=== PATIENT | female | born 1990 | race Caucasian/White ===

== ENCOUNTER → 2019-01-31 | Outpatient (CLI) | payer OTHER, SELFPAY ==
[2019-01-31 14:49] VITALS: BMI 28.9
[2019-02-04 12:50] LABS: HPV Reflexed? NOT INDICATED
== END | disposition home or self-care (01) ==
LOC: LABSPEC 17:09
PROVIDERS: Referring Provider Obstetrics & Gynecology; Visit Provider Obstetrics & Gynecology
DX: Z12.4 Encounter for screening for malignant neoplasm of cervix (principal)
CPT/HCPCS: 87624; 88175; G0145

== ENCOUNTER → 2019-10-21 07:12 | Outpatient (CLI) | payer OTHER, SELFPAY ==
[2019-10-16 15:43] VITALS: BMI 28.9
--- NOTE | 2019-10-21 07:13 | MRI_ITS ---
STUDY: MRI LEFT SHOULDER REASON FOR EXAM: Female, 29 years old. Constant LEFT shoulder pain s/p injury, decreased ROM TECHNIQUE: Standardized fat and water weighted pulse sequences were obtained in all 3 orthogonal planes. COMPARISON: None. FINDINGS: Normal supraspinatus tendon. Normal infraspinatus tendon. Normal subscapularis tendon. Normal teres minor tendon. Normal supraspinatus muscle. Normal infraspinatus muscle. Normal subscapularis muscle. Normal teres minor muscle. Normal glenohumeral articulation. Normal humeral head and visualized proximal humerus. Normal biceps labral complex. Normal intracapsular long biceps tendon. Normal labrum. Normal capsulo- ligamentous complex. Normal rotator interval. Normal acromioclavicular articulation. There is a Type II morphology (curved), with a neutral orientation. There is no subacromial-subdeltoid bursal fluid. Normal visualized coracohumeral and coracoacromial ligaments. Normal quadrilateral space. Normal axillary space. Normal deltoid muscle. Normal trapezius muscle. MRI/Upper Ext Joint Only(Routine) IMPRESSION: Normal MRI of the shoulder. Electronically Signed: Fredi Saenz MD at 16:25 EST , Service support ,
== END ==
PROVIDERS: Referring Provider Physician Assistant Surgical; Visit Provider Physician Assistant Surgical
DX: S46.912A Strain of unspecified muscle, fascia and tendon at shoulder and upper arm level, left arm, initial encounter (principal); X58.XXXA Exposure to other specified factors, initial encounter
CPT/HCPCS: 73221

== ENCOUNTER → 2019-10-25 12:16 | Outpatient (CLI) | payer OTHER, SELFPAY ==
[2019-10-12 09:10] VITALS: BMI 28.9
[2019-10-16 15:43] VITALS: BMI 28.9
--- NOTE | 2019-10-25 12:16 | US_ITS ---
STUDY: ULTRASOUND OF THE FEMALE PELVIS - COMPLETE REASON FOR EXAM: Female, 29 years old. ABNL BLEEDING LMP: 10/24/2019 TECHNIQUE: Transabdominal and Transvaginal TECHNICAL QUALITY: Adequate. COMPARISON: None. FINDINGS: The uterus is anteverted and is in a midline position. The uterus measures 9.8 x 5.2 x 4.8 cm. Normal uterine cervix. The endometrium measures 11 mm in thickness, and is hyperechoic. 1 cm hypoechoic mass within the endometrium. There is no demonstrated myometrial mass. I.U.D. - The patient does have an I.U.D. The right ovary is visualized. The right ovary measures 2.0 x 1.8 x 1.9 cm. There is no right ovarian cyst or ovarian mass. There is no visualized right adnexal mass or complex lesion. There is normal arterial and normal venous vascularity. The left ovary is visualized. The left ovary measures 2.7 x 1.4 x 1.9 cm. There is no left ovarian cyst or ovarian mass. There is no visualized left adnexal mass or complex lesion. There is normal arterial and normal venous vascularity. There is no fluid in the cul-de-sac. The pre void volume of the bladder was ml. The post void volume of the bladder was ml. Polycystic ovary disease: No. US/Pelvic (Non ) IMPRESSION: 1 cm hypoechoic endometrial mass. Correlation with hysteroscopy would be useful. Electronically Signed: Boyd Verdin MD at 13:14 EST Tel , Service support ,
--- NOTE | 2019-10-25 12:16 | US_ITS ---
STUDY: ULTRASOUND OF THE FEMALE PELVIS - COMPLETE REASON FOR EXAM: Female, 29 years old. ABNL BLEEDING LMP: 10/24/2019 TECHNIQUE: Transabdominal and Transvaginal TECHNICAL QUALITY: Adequate. COMPARISON: None. FINDINGS: The uterus is anteverted and is in a midline position. The uterus measures 9.8 x 5.2 x 4.8 cm. Normal uterine cervix. The endometrium measures 11 mm in thickness, and is hyperechoic. 1 cm hypoechoic mass within the endometrium. There is no demonstrated myometrial mass. I.U.D. - The patient does have an I.U.D. The right ovary is visualized. The right ovary measures 2.0 x 1.8 x 1.9 cm. There is no right ovarian cyst or ovarian mass. There is no visualized right adnexal mass or complex lesion. There is normal arterial and normal venous vascularity. The left ovary is visualized. The left ovary measures 2.7 x 1.4 x 1.9 cm. There is no left ovarian cyst or ovarian mass. There is no visualized left adnexal mass or complex lesion. There is normal arterial and normal venous vascularity. There is no fluid in the cul-de-sac. The pre void volume of the bladder was ml. The post void volume of the bladder was ml. Polycystic ovary disease: No. US/Transvaginal Non- IMPRESSION: 1 cm hypoechoic endometrial mass. Correlation with hysteroscopy would be useful. Electronically Signed: Boyd Verdin MD at 13:14 EST Tel , Service support ,
== END ==
PROVIDERS: Referring Provider Nurse Practitioner Women's Health; Visit Provider Nurse Practitioner Women's Health
DX: N92.6 Irregular menstruation, unspecified (principal); Z30.431 Encounter for routine checking of intrauterine contraceptive device
CPT/HCPCS: 76830; 76856

== ENCOUNTER 2019-12-20 12:00 | Outpatient (RCR) | payer OTHER, SELFPAY ==
[2019-10-25 16:26] VITALS: BMI 28.9
--- NOTE | 2019-10-26 08:11 | HP.PTEVAL ---
Patient's Visit Information JULIA BROWN is a 29 year old F referred to Physical Therapy by RENNY Boyer with a diagnosis of L shoulder pain. Date of Evaluation: 10/26/19 Physical Therapist: Ramy Tran DPT - Visit Plan Frequency: 3x /Week Duration: 4 Weeks Plan: Start with AAROM progressing to AROM of L shoulder (focus on regaining full pain free AROM). May use US/DN/IFC to reduce symptoms of anterior shoulder 1-2 weeks. Once symptoms have started to reduce and has regained most of full AROM, initiate isometrics of RTC and biceps. Progress strengthening PREs once having minimal symptoms. - Subjective Findings: Pt. is here today for her initial evaluation with diagnosis of L shoulder pain. Pt. works in [employer] at [employer]. 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 She had instant shooting pain down her arm, especially in her anterior shoulder. Pt. denies N/T. She is having some trouble sleeping, has to keep her arm proped up. Pt. has been at work with light retrictions. Pt. was initially restricted on keeping her arm over her head and less than 10#. Was in a sling for a few days, but is now no longer in it. Pt did have an MRI, which was normal. Pt. reprots small improvements since initiail injury. Increased pain with getting dressing, after work. Decreases pain: nothing. Pt. is hopeful to get back to all work and recreational duties witout incerase in symptoms. - Pain L shoulder Pain Intensity (Out of 10): 0 Pain Intensity Range: 6 - Objective POSTURE: Pt. has FH and rounded shoulders. L shoulder. PALPATION: Pt. has tenderness along biceps tendon and anterior shoulder. Slight soreness into pec region. No subacromial pain. No scaplar pain. NEURO: Pt. denies N/T, normal sensation of LUE. Normal DTR of bilateral UEs. ROM: Pt. has full L shoulder ROM, but increased pain starting at ~75% of motions over head into flexion, abd. She also has pain with ER and IR (functional IR worst). pain is always anterior shoulder biceps region. FUll PROM throhgout shoulder. MMT: L elbow- flexion and exte 5/5 mild increase NW with flexion (at anterior shoulder). SHoulder- flexion 4/5 increase NW, abd 4/5 increase NW, ER 4+/5 increase NW, IR 5-/5 NE, extension 5/5 no effect. - Special Tests L Shoulder External Rotation Lag Test - RC Tear: Negative L Shoulder Empty Can - SS: Negative L Shoulder Belly Press - SupScap: Negative L Shoulder Neer - Impingement: Negative L Shoulder Mcgowan Sawyer - Impingement: Negative L Shoulder Biceps Load Test - Labrum: Positive L Shoulder Speeds Test - Labrum/Biceps: Positive - Goals Goal 1:: LTG: Pt. to be I with HEP for ROM and stability of L shoulder. Goal Time Frame: 4-6 Weeks Goal 2:: STG: Pt to tolerate sleeping throughout the night without increase in symptoms. Goal Time Frame: 2-4 Weeks Goal 3:: LTG: Pt. to resume all work activities without increase in symptoms. Goal Time Frame: 4-6 Weeks Goal 4:: STG: Pt. to have full L shoulder AROM without incerase in symptoms. Goal Time Frame: 2-4 Weeks Goal 5:: LTG: Pt. to have full 5/5 strength of L shoulder without increase in symptoms. Goal Time Frame: 4-6 Weeks - Rehabilitation Potential Physical Therapy Diagnosis: Pt. has signs and symptoms consistent with L shoulder strain, L RC strain. Pt. has signs and symptoms suggesting biceps involvement of L shoulder, due to mech of injury, + speeds test and + palpation of bicipital tendong being the greatest pain. 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 Pt. appears to have a strain of her biceps due to this injury. Rehabilitation Potential: Excellent - Anticipated Interventions Patient/Client Instruction: Educate patient on: Condition, Plan of Care, Risk Factors, Benefits of Fitness Program For the Purpose of:: To foster healthy habits, To improve decision making, To facilitate caregiver knowledge, To improve self management, To prevent re-injury, To improve ability to perform tasks related to life management, To improve tolerance to ADL's Therapeutic Exercise to Include: Strength training, Power training, Postural training, Flexibilty training, Passive ROM, Active ROM, Alex Exercises, Scapular Strength/Stabilization For the Purpose of:: To decrease pain, To decrease swelling/inflammation, To increase ROM, To improve nutrient delivery to tissue, To increase oxygenation perfusion, To improve muscle performance and motor function, To improve ability to perform ADL's, To improve ability of physical actions for home/community/work/leisure, To improve health of tissue, To decrease soft tissue restriction, To increase flexibility/ROM Manual Therapy Techniques to Include: Mobilization, Passive ROM, Functional dry needling, Soft tissue mobilization For the Purpose of:: To decrease pain, To increase ROM IF ES: Yes Ultrasound (thermal/non thermal): Yes For the Purpose of:: To decrease pain, To decrease swelling/inflammation, To improve nutrient delivery to tissue Thank you for the opportunity to evaluate your patient. For Medicare and Medicare HMO plans, please review the plan of care and approve it. It will need to be FAXED BACK to us at [phone] for Medicare purposes. For Medicare only, by signing this I certify the plan of care. Please let me know if there are questions or concerns regarding this plan of care. Physician Signature: Date:
--- NOTE | 2020-04-22 16:26 | HP.PTDCNRP_ITS ---
JULIA BROWN was seen in my office for initial evaluation on 10/26/19. The following Plan of Care was established for this patient: Initial Frequency: 3x /Week Initial Duration: 4 Weeks Patient/Client Instruction: Educate patient on: Condition, Plan of Care, Risk Factors, Benefits of Fitness Program For the Purpose of:: To foster healthy habits, To improve decision making, To facilitate caregiver knowledge, To improve self management, To prevent re- injury, To improve ability to perform tasks related to life management, To improve tolerance to ADL's Therapeutic Exercise to Include: Strength training, Power training, Postural training, Flexibilty training, Passive ROM, Active ROM, Alex Exercises, Scapular Strength/Stabilization For the Purpose of:: To decrease pain, To decrease swelling/inflammation, To increase ROM, To improve nutrient delivery to tissue, To increase oxygenation perfusion, To improve muscle performance and motor function, To improve ability to perform ADL's, To improve ability of physical actions for home/community/work/leisure, To improve health of tissue, To decrease soft tissue restriction, To increase flexibility/ROM Manual Therapy Techniques to Include: Mobilization, Passive ROM, Functional dry needling, Soft tissue mobilization For the Purpose of:: To decrease pain, To increase ROM IF ES: Yes Ultrasound (thermal/non thermal): Yes For the Purpose of:: To decrease pain, To decrease swelling/inflammation, To improve nutrient delivery to tissue This patient was last seen in our office 12/20/19. Pertinent comments regarding their Physical therapy will appear below: Pt. was last seen on 12/20/19. Pt. was doing well at her last visit. Pt. has not been seen in PT in several months and will be DC from PT at this point in time. At this point I will be discontinuing this patient from physical therapy. I would be happy to see this patient again in the future if found appropriate by the physician. Thank you! GABRIELLE SimonT
== END 2019-12-20 19:00 | disposition home or self-care (01) ==
LOC: PT 12:00
PROVIDERS: Referring Provider Physician Assistant Surgical; Visit Provider Physician Assistant Surgical
DX: S46.912D Strain of unspecified muscle, fascia and tendon at shoulder and upper arm level, left arm, subsequent encounter (principal); S46.012D Strain of muscle(s) and tendon(s) of the rotator cuff of left shoulder, subsequent encounter
CPT/HCPCS: 97110; 97140; 97161

== ENCOUNTER → 2020-01-09 12:36 | Outpatient (CLI) | payer OTHER, SELFPAY ==
[2019-10-25 16:26] VITALS: BMI 28.9
[2019-12-21 13:00] VITALS: BMI 28.9
== END ==
PROVIDERS: Referring Provider Obstetrics & Gynecology; Visit Provider Obstetrics & Gynecology
DX: Z01.818 Encounter for other preprocedural examination (principal)

== ENCOUNTER 2020-01-16 08:13 | Day surgery (SDC) | payer OTHER, SELFPAY ==
[2019-12-21 13:00] VITALS: BMI 28.9
[2020-01-12 09:48] VITALS: BMI 28.9
[2020-01-16] MEDS: Lactated Ringers 1,000 ML 125 ML IV (07:00)
[2020-01-16 08:37] LABS: Hematocrit 41.5 % (37-47); Mean Corp Hgb Conc 33.7 g/dL (32-36); Mean Corpuscular Hgb 28.9 pg (27.0-32.0); Mean Corpuscular Volume 85.6 fL (81-99); Mean Platelet Vol. 9.8 fl (6.2-12.0); Platelet Count 328 K/mm3 (150-450); RBC Distribution Width SD 40.4 fl (35.1-43.9); Red Blood Count 4.85 M/mm3 (4.2-5.4); White Blood Count 7.9 K/mm3 (4.4-11.0)
[2020-01-16 08:38] VITALS: BP 120/76; PULSE 72; RESP 14; TEMP 36.7; O2SAT 99; BMI 31.9
[2020-01-16 08:49] LABS: Internal QC Validated? YES +Cl - CLEAR BKGD; Pregnancy, Urine Negative Negative
[2020-01-16] MEDS: Enoxaparin 40 MG/0.4 ML Syringe SC (08:58)
--- NOTE | 2020-01-16 09:28 | HP.PCM_ITS ---
- Problem List (1) Abnormal uterine bleeding Status: Acute Comment: hysteroscopy d & c scheduled (2) Encounter for IUD removal and reinsertion Status: Acute Comment: parasophia out, felicitas in (3) Factor 5 Leiden mutation, heterozygous Status: Acute (4) History of DVT (deep vein thrombosis) Status: Acute History and Physical Date of Admission: 01/16/20 Intake Vital Signs 11/20/19 Height 5 ft 5 in 11/20/19 Weight: 188 lb 11/20/19 BMI 31.2 11/20/19 BP 122/80 H Intake Visit Reasons: pre op Chief Complaint: pre op Is patient in pain?: No Allergies codeine Allergy (Mild, Verified 11/20/19 13:03) other hydromorphone [From Dilaudid] Allergy (Mild, Verified 11/20/19 13:03) other morphine Allergy (Mild, Verified 11/20/19 13:03) other Medications copper 380 square mm intrauterine device 1 device INTRAUTERINE ONCE 11/20/19 [History Confirmed 11/20/19] Is last menstrual period known: No Post menopausal: No Patient : No : No [facility] Medical History Factor 5 Leiden mutation, heterozygous (Acute) History of blood clots (Acute) MTHFR gene mutation (Acute) Surgical History H/O knee surgery (Acute) History of placement of chest tube (Acute) History of wisdom tooth extraction, class II edentulism (Acute) Family History Unknown Breast cancer Social History (Updated 11/20/19 @ 13:[address] 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 she has a lesion in the lining of the uterus and has had AUB , has had a paragard IUD in. Pregancy History 0 Elective abortions Hx Para Spontaneous abortions Hx # Term Pregnancies Ectopic pregnancies Hx # Pregnancies Multiple births # of living children ROS Const Constitutional: Reports system reviewed and no additional complaints, except as docu Eyes Eyes: Reports system reviewed and no additional complaints, except as docu ENT ENT: Reports system reviewed and no additional complaints, except as docu Cardio Card: Denies chest pain Resp Resp: Denies cough or dyspnea GI GI: Denies abdominal pain or change in bowel habits : Reports as per HPI; denies nipple discharge Musc Musc: Denies joint pain, back pain or muscle weakness Skin Skin/Breast: Denies hair loss, change in hair, dry skin, breast lump, breast pain, breast skin changes or nipple discharge Neuro Neuro: Reports system reviewed and no additional complaints, except as docu Psych Psych: Reports system reviewed and no additional complaints, except as docu Endo Endo: Denies cold intolerance, excessive sweating, heat intolerance or increased thirst Be/Lymph Hematologic/Lymphatic: Denies easy bleeding, Denies easy bruising, Denies enlarged lymph nodes Exam Const General: cooperative, healthy appearing, comfortable, no acute distress, well developed, well groomed [facility] Head: normal to inspection, normocephalic Ears: hearing grossly normal bilaterally, external ears normal Nose: external nose normal Face and sinus: normal facial exam Neck Neck: normal visual inspection, full ROM, no lymphadenopathy Thyroid: thyroid normal Chest Chest palpation & inspection: normal inspection of the chest Breast inspection: normal inspection of the breasts, normal inspection of the axillae Breast palpation: normal palpation of the breasts, normal palpation of the axillae, no axillary lymphadenopathy Resp Effort & Inspection: normal respiratory effort GI Inspection: normal to inspection, non-distended Palpation: soft, no hepatosplenomegaly, no guarding General: bladder normal to palpation External Female Exam: normal external appearance, normal appearance of the urethra, no lesions Urethra: normal appearance of the urethra Speculum Exam - Vagina: normal appearance of the vagina, normal vaginal discharge Speculum Exam - Cervix: normal appearance of the cervix, no cervical discharge, no lesions, nontender Bimanual Exam- Vagina & Uterus: bladder normal to palpation, No cervical tenderness Bimanual Exam- Adnexa, other: normal adnexae, no adnexal masses, adnexae non- tender Skin General: no rashes or lesions noted Neuro General: alert, moves all extremities, no focal motor deficits Extrem General: normal to inspection, no pedal edema Psych Appearance: grossly normal Mental Status: mental status grossly normal Affect: normal affect Speech and Movement: speech and movement normal Attitude: cooperative Assessment & Plan Problems 1. Abnormal uterine bleeding N93.9 hysteroscopy d & c scheduled 2. Encounter for IUD removal and reinsertion Z30.433 paragard out, liletta in Plan After discussing the patient's diagnosis and treatment plan options, patient wishes to proceed with surgical management. I have discussed with the patient the risks, benefits, and alternatives of the procedure which include but are not limited to risks of anesthesia, bleeding, infection, possible damage to bowel, bladder, or surrounding vasculature which could lead to additional surgery to evaluate any complications. Patient agrees to procedure and wishes to proceed. ACOG/uptodate references given for additional information regarding procedure. plan liletta iud insertion UPDATE- I have seen the patient and performed any clinically relevant updates to the history and physical exam. Lisy Tamez MD Coding Level of Care Code No Charge Diagnoses Abnormal uterine bleeding N93.9 Encounter for IUD removal and reinsertion Z30.433
--- NOTE | 2020-01-16 09:33 | PCM.OPRPT ---
Problem List (1) Abnormal uterine bleeding Status: Acute Comment: hysteroscopy d & c scheduled (2) Encounter for IUD removal and reinsertion Status: Acute Comment: paragard out, felicitas in (3) Factor 5 Leiden mutation, heterozygous Status: Acute (4) History of DVT (deep vein thrombosis) Status: Acute Report of Operation Date of Procedure: 01/16/20 Pre-Operative Diagnosis: aub iud in Post-Operative Diagnosis: same Surgery/Procedure Performed:: d and c hysterosocpy iud removal and mirena insertion Description of Surgical Findings:: polypoid lining, iud strings in endocervical canal Type of Anesthesia:: Local MAC Special Medications: none Specimen's removed: iud, emc Drains: dejesus Estimated Blood Loss (mL): 10 Fluids Replaced: crystalloid Description of Procedure: Patient was prepped and draped in a normal sterile fashion under MAC anesthesia. A weighted speculum was placed in the vagina and the anterior lip of the cervix was grasped with a single-tooth tenaculum. A paracervical block was placed with 1% lidocaine. Cervix was progressively dilated to allow passage of a 5 mm hysteroscope. The lining was fully visualized and noted to have a polypoid lining. IUD was visualized and the strings were noted to be endocervical. These were grasped with polyp forceps and removed easily without complication, uterine sounded to 9 cm. Using the symphion device, the polyps and polypoid area were progressively removed without complications. Direct visual curettage was performed using the device , and all specimens were sent to pathology. Mirena IUD was inserted without difficulty and strings trimmed to 3 to 4 cm from the endocervical loss. All instruments were removed from the vagina and excellent hemostasis was noted. Patient was awoken and taken to recovery in stable condition. Grafts/Implants Used: mirena iud - Complications none - Admit VTE Documentation VTE Present on Admission: No VTE Mechan Device Prophylaxis: SCD's VTE Pharm Prophylaxis ordered?: Yes Multi Select Codes - Urinary/Genital Urinary/Genital CPT Codes: 60241 Insert IUD - and IUD removal, 99332 Hysteroscopy,EMC, Polypectomy
--- NOTE | 2020-01-16 09:34 | DCINST_ITS ---
Discharge Diet: No Restrictions Discharge Activity: Return to Normal Activity, May Shower, May Take a Tub Bath Allergies/Adverse Reactions: Allergies hydromorphone [From Dilaudid] Allergy (Mild, Verified 01/15/20 08:22) Hives morphine Allergy (Mild, Verified 01/15/20 08:22) Hives tramadol Allergy (Verified 01/15/20 08:22) Hives codeine Adverse Reaction (Mild, Verified 01/15/20 08:22) Nausea Medications to take at Discharge Copper [Paragard T 380-A] 1 ea IY DAILY 01/15/20 Multivit-Min/Folic Acid/Biotin [Hair, Skin & Nails Caplet] 1 ea PO DAILY 01/15/20 Naproxen [Naprosyn] 250 - 500 mg PO Q8H PRN PRN #30 tab 01/16/20 The following prescriptions were given: Naproxen [Naprosyn] 250 - 500 mg PO Q8H PRN PRN #30 tab PRN Reason: MILD PAIN Transmission Status: Pending to [facility] Primary Care Physician: Zen Bucio MD [Primary Care Provider] - Test Results: Test results from this visit will be discussed in further detail at your follow- up appointment, if applicable. Please Follow Up With: Lisy Tamez MD - [phone]
--- NOTE | 2020-01-16 09:45 | UTC_PTH ---
PATIENT: JULIA BROWN LOC: [facility] U#:[id number] AGE/SX: 29/F ROOM: RE01/16/[address]: Dr. Lisy Tamez MD : 1990 BED: DIS: 01/16/2020 SPEC #: [id number] RECD: 01/16/20 13:40 STATUS: DILCIA DARREN #: [id number] JUAN ANTONIO: 01/16/20 09:[address]: Lisy Tamez DEPT: SURGICAL PATHOLOGY RECD BY: Shahzad Gonzalez ENTERED: 01/17/20 09:08 SP TYPE: UT KASANDRA KRUGER DR: Dr. Zen Bucio MD Tissues: Uterine cervix, NOS Procedures: Surgery Specimen Level IV HEADER OPERATION: Hysteroscopy, D & C Symphion, removal and insertion of IUD PRE-OP DIAGNOSIS: Abnormal uterine bleeding; IUD removal and reinsertion TISSUE SUBMITTED: Symphion resection contents MICROSCOPIC DIAGNOSIS Symphion resection contents: Disordered proliferative endometrium with focal glandular and stromal breakdown. Fragments of benign endocervical mucosa with chronic inflammation. Fragments of myometrium. EZ:adrianna 01/18/20 COMMENT Case has been reviewed in consultation with Dr. Daly who concurs with the above diagnosis. IDC:AM MICROSCOPIC DESCRIPTION Slides are reviewed. GROSS DESCRIPTION Received in fixative is one container labeled with the patient's name and designated Symphion resection contents. The specimen consists of multiple irregular fragments of light bee soft tissue that in aggregate measure 4 x 2.5 x 0.2 cm. The specimen is totally submitted in two cassettes. / AM:adrianna 01/17/20 TC:5 CPT: 59247
[2020-01-16 10:10] VITALS: BP 111/72; BP 120/76; PULSE 71; RESP 14; TEMP 36.1; O2SAT 98
[2020-01-16 10:14] VITALS: BP 102/70; BP 120/76; PULSE 69; RESP 14; O2SAT 97
[2020-01-16 10:20] VITALS: BP 104/67; BP 120/76; PULSE 66; RESP 14; O2SAT 96
[2020-01-16 10:25] VITALS: BP 120/76; BP 97/77; PULSE 68; RESP 14; TEMP 36.4; O2SAT 97
[2020-01-16 11:46] VITALS: BP 120/76
== END 2020-01-16 11:52 | disposition home or self-care (01) ==
LOC: SDC 08:14 → AC 08:14
PROVIDERS: Anesthesiology; Referring Provider Obstetrics & Gynecology; Visit Provider Obstetrics & Gynecology
PROC: 0UB98ZZ Excision of Uterus, Via Natural or Artificial Opening Endoscopic (ICD-10-PCS; CPT 58558; principal; 2020-01-16 09:30)
DX: Z30.433 Encounter for removal and reinsertion of intrauterine contraceptive device (principal); D68.51 Activated protein C resistance; Z86.718 Personal history of other venous thrombosis and embolism; N93.9 Abnormal uterine and vaginal bleeding, unspecified; J45.909 Unspecified asthma, uncomplicated; K21.9 Gastro-esophageal reflux disease without esophagitis
CPT/HCPCS: 58300; 58301; 58558; 36415; 81025; 85027; 86850; 86900; 86901; 88305; J7120; J2405

== ENCOUNTER → 2020-10-27 18:36 | Outpatient (REF) | payer OTHER, SELFPAY ==
[2020-02-29 10:06] VITALS: BMI 33.3
[2020-10-27 19:08] LABS: Absolute Lymphocyte Count 2.87 X10^3/uL (0.83-4.51); Absolute Neutrophil Count 4.9 X10^3/uL (2.0-7.7); Basophil# 0.02 X10^3/uL; Basophil% 0.2 % (0-1); Eosinophil# 0.14 X10^3/uL; Eosinophils% 1.7 % (0-5); Hematocrit 44.6 % (37-47); Hemoglobin 14.6 g/dL (12.0-15.0); Lymphocyte # 2.87 X10^3/ul (4.0); Lymphocyte % 34.1 % (19-41); Mean Corp Hgb Conc 32.7 g/dL (32-36); Mean Corpuscular Hgb 29.7 pg (27.0-32.0); Mean Corpuscular Volume 90.8 fL (81-99); Monocyte# 0.51 X10^3/uL; Monocyte% 6.1 % (0-10); NRBC Flagged by Analyzer 0 % (0-5); Neutrophil # 4.85 X10^3/uL (2.7-7.7); Neutrophil % 57.7 % (47-70); Platelet Count 330 K/mm3 (150-450); RBC Distribution Width CV 12.9 % (11.6-14.6); RBC Distribution Width SD 42.5 fl (35.1-43.9); Red Blood Count 4.91 M/mm3 (4.2-5.4); White Blood Count 8.4 K/mm3 (4.4-11.0)
[2020-10-27 19:10] LABS: ALB/GLOB Ratio 0.9 RATIO (0.9-2.4); AST(SGOT) 16 U/L (15-37); Alanine Aminotransfer ALT/SGPT 20 U/L (13-56); Albumin, Serum 3.7 g/dL (3.2-5.0); Alkaline Phosphatase 62 U/L (45-117); Anion Gap 5 (5-15); BUN 12 mg/dL (7-18); BUN/Creat Ratio 15.1 RATIO (10-20); Chloride 104 mmol/L (98-107); Creatinine, Serum 0.79 mg/dL (0.55-1.02); EST Glomerular Filtration Rate 91 mL/min (>60); Est Glom Filt Rate - Afr Amer 111 mL/min (>60); Globulin 4.2 g/dL (2.2-4.2); Glucose 93 mg/dL (74-106); Potassium 3.8 mmol/L (3.5-5.1); Prolactin 7.7 ng/mL; Protein, Total 7.9 g/dL (6.4-8.2); Sodium Level 139 mmol/L (136-145)
== END ==
LOC: LAB 18:36
PROVIDERS: Referring Provider Obstetrics & Gynecology; Visit Provider Obstetrics & Gynecology
DX: N92.6 Irregular menstruation, unspecified (principal); Z13.29 Encounter for screening for other suspected endocrine disorder
CPT/HCPCS: 80053; 84146; 84443; 85025

== ENCOUNTER → 2021-03-04 14:13 | Outpatient (CLI) | payer OTHER, SELFPAY ==
[2021-03-04 14:05] VITALS: BMI 35.0
[2021-03-04 15:04] LABS: Estradiol 42.7 pg/mL; Follicle Stimulating Hormone 5.8 mIU/mL; T4 Free Direct 0.86 ng/dL (0.76-1.46); Thyroid Stim Hormone (TSH) 1.36 uIU/mL (0.358-3.74)
[2021-03-08 10:07] LABS: 17-Hydroxyprogesterone 45 ng/dL (.)
[2021-03-08 10:12] LABS: Testosterone Free 3.6 pg/mL (0.0-4.2)
== END ==
PROVIDERS: Referring Provider Obstetrics & Gynecology; Visit Provider Obstetrics & Gynecology
DX: N91.4 Secondary oligomenorrhea (principal); Z13.29 Encounter for screening for other suspected endocrine disorder
CPT/HCPCS: 82627; 82670; 83001; 83036; 83498; 84402; 84439; 84443; 82626

== ENCOUNTER → 2021-03-12 08:56 | Outpatient (CLI) | payer OTHER, SELFPAY ==
[2021-03-04 14:05] VITALS: BMI 35.0
--- NOTE | 2021-03-12 08:57 | US_ITS ---
STUDY: ULTRASOUND TRANSVAGINAL CLINICAL: Female, 30 years old. irreuglar menses TECHNIQUE: Transvaginal COMPARISON: None. FINDINGS: Normal uterine size measuring 9.2 x 4.8 x 3.9 cm in maximal craniocaudal dimension. There is a 1 cm oval hypoechoic mass in the anterior body the uterus consistent with a submucosal fibroid.. Normal endometrial thickness measuring 6 mm. There are no endometrial masses, and there is no fluid in the endometrial cavity. Normal uterine cervix. Normal right ovary, measuring 3.0 x 3.1 x 2.1 cm. There are multiple follicles without a dominant cyst. Normal left ovary, measuring 2.8 x 2.9 x 1.8 cm. There are multiple follicles without a dominant cyst. There is no free fluid in the pelvis. Polycystic ovary disease: No. US/Transvaginal Non- IMPRESSION: 1 cm submucosal fibroid in the anterior body the uterus. Electronically Signed: Boyd Verdin MD at 10:56 EDT Tel , Service support ,
--- NOTE | 2021-03-12 08:57 | US_ITS ---
STUDY: ULTRASOUND TRANSVAGINAL CLINICAL: Female, 30 years old. irreuglar menses TECHNIQUE: Transvaginal COMPARISON: None. FINDINGS: Normal uterine size measuring 9.2 x 4.8 x 3.9 cm in maximal craniocaudal dimension. There is a 1 cm oval hypoechoic mass in the anterior body the uterus consistent with a submucosal fibroid.. Normal endometrial thickness measuring 6 mm. There are no endometrial masses, and there is no fluid in the endometrial cavity. Normal uterine cervix. Normal right ovary, measuring 3.0 x 3.1 x 2.1 cm. There are multiple follicles without a dominant cyst. Normal left ovary, measuring 2.8 x 2.9 x 1.8 cm. There are multiple follicles without a dominant cyst. There is no free fluid in the pelvis. Polycystic ovary disease: No. US/Pelvic (Non ) IMPRESSION: 1 cm submucosal fibroid in the anterior body the uterus. Electronically Signed: Boyd Verdin MD at 10:56 EDT Tel , Service support ,
== END ==
PROVIDERS: Referring Provider Obstetrics & Gynecology; Visit Provider Obstetrics & Gynecology
DX: N91.4 Secondary oligomenorrhea (principal)
CPT/HCPCS: 76830; 76856

== ENCOUNTER 2021-04-15 09:32 | Day surgery (SDC) | payer OTHER, SELFPAY ==
[2021-03-04 14:05] VITALS: BMI 35.0
[2021-04-03 11:45] VITALS: BMI 35.0
[2021-04-14 09:32] LABS: Absolute Lymphocyte Count 2.33 X10^3/uL (0.83-4.51); Absolute Neutrophil Count 6.9 X10^3/uL (2.0-7.7); Basophil# 0.02 X10^3/uL; Basophil% 0.2 % (0-1); Eosinophil# 0.14 X10^3/uL; Eosinophils% 1.4 % (0-5); Hematocrit 43.3 % (37-47); Hemoglobin 14.4 g/dL (12.0-15.0); Lymphocyte # 2.33 X10^3/ul (0.83-4.51); Lymphocyte % 23.5 % (19-41); Mean Corp Hgb Conc 33.3 g/dL (32-36); Mean Corpuscular Hgb 28.7 pg (27.0-32.0); Mean Corpuscular Volume 86.3 fL (81-99); Mean Platelet Vol. 9.8 fl (6.2-12.0); Monocyte# 0.53 X10^3/uL; Monocyte% 5.3 % (0-10); NRBC Flagged by Analyzer 0 % (0-5); Neutrophil # 6.88 X10^3/uL (2.7-7.7); Neutrophil % 69.3 % (47-70); Platelet Count 355 K/mm3 (150-450); RBC Distribution Width CV 12.7 % (11.6-14.6); RBC Distribution Width SD 39.7 fl (35.1-43.9); Red Blood Count 5.02 M/mm3 (4.2-5.4); White Blood Count 9.9 K/mm3 (4.4-11.0)
[2021-04-14 09:56] LABS: Internal QC Validated? YES +Cl - CLEAR BKGD; Pregnancy, Serum, hCG Quali. NEGATIVE Negative
--- NOTE | 2021-04-14 18:53 | PCM.HP.BLA ---
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: No Is patient in pain?: No Allergies hydromorphone [From Dilaudid] Allergy (Mild, Verified 03/27/21 10:05) Hives morphine Allergy (Mild, Verified 03/27/21 10:05) Hives tramadol Allergy (Verified 03/27/21 10:05) Hives codeine Adverse Reaction (Mild, Verified 03/27/21 10:05) Nausea Medications aubcuuay-qzx-tahny acid-biotin 1 ea PO DAILY 01/15/20 [History Confirmed 03/27/21] medroxyprogesterone 10 mg tablet 10 mg PO DAILY 5 Days #5 tab 03/04/21 [Rx Confirmed 03/27/21] Is last menstrual period known: No Post menopausal: No Patient : No : No [facility] Medical History (Updated 03/29/21 @ 07:[address] Lisy Tamez MD) Factor 5 Leiden mutation, heterozygous History of DVT (deep vein thrombosis) MTHFR gene mutation Surgical History H/O knee surgery History of placement of chest tube History of wisdom tooth extraction, class II edentulism Status post hysteroscopy (~01/16/20) Family History Unknown Breast cancer Social History Smoking Status: Never smoker alcohol intake: never substance use type: does not use caffeine: Yes what type of physical activity do you participate in: walking seatbelt use: always do you feel safe at home: Yes additional social history: Works at [employer] Lab HPI 4 WK FU Details: JULIA BROWN is a 30 year old who presents for follow-up of oligomenorrhea and abnormal ultrasound findings. Patient did have a period in response to Provera confirming oligo ovulation. Pregancy History 0 Elective abortions Hx Para Spontaneous abortions Hx # Term Pregnancies Ectopic pregnancies Hx # Pregnancies Multiple births # of living children ROS Const Constitutional: Denies fatigue, fever(s), headache(s), increased appetite, poor appetite, weight gain or weight loss ENT ENT: Reports system reviewed and no additional complaints, except as documented Cardio Card: Denies chest pain Resp Resp: Denies cough or dyspnea GI GI: Reports as per HPI; Denies abdominal pain, constipation, nausea or vomiting : Reports as per HPI; Denies difficulty voiding, dysuria, hematuria, nipple discharge, pelvic pain, urinary frequency, urinary incontinence, urinary hesitancy, urinary urgency, vaginal discharge, vaginal dryness, vaginal odor, vaginal pruritus or other Musc Musc: Denies arthralgias, back pain or muscle weakness Skin Skin/Breast: Denies alopecia, change in hair, dry skin, breast mass, breast pain, breast skin changes or nipple discharge Neuro Neuro: Reports system reviewed and no additional complaints, except as documented Psych Psych: Reports system reviewed and no additional complaints, except as documented Endo Endo: Denies cold intolerance, excessive sweating, heat intolerance or polydipsia Be/Lymph Hematologic/Lymphatic: Denies easy bleeding, Denies easy bruising and Denies lymphadenopathy Exam Const General: cooperative, healthy appearing, comfortable, no acute distress and well developed Orientation: alert HENGA Head: normal to inspection and normocephalic Ears: hearing grossly normal bilaterally and external ears normal Nose: external nose normal and nares normal Face and sinus: normal facial exam Neck Neck: normal visual inspection, no lymphadenopathy and trachea midline Thyroid: thyroid normal Chest Chest palpation & inspection: normal inspection of the chest Resp Effort & Inspection: normal respiratory effort Auscultation: clear to auscultation bilaterally Cardio Rate: regular rate Rhythm: regular rhythm Heart Sounds: S1 normal and S2 normal GI Inspection: normal to inspection and non-distended Palpation: soft and no hepatosplenomegaly Musc Other: gross motor intact no deficits, full bilateral strength Skin General: no rashes or lesions noted Neuro General: patient alert, patient awake, moves all extremities and no focal motor deficits Motor: muscle tone normal throughout Extrem General: normal to inspection and no pedal edema Psych Appearance: grossly normal Mental Status: mental status grossly normal Affect: normal affect Speech and Movement: speech and movement normal Coding Level of Care Code Off vis,est,level 4 Diagnoses Submucous uterine fibroid D25.0 Oligo-ovulation with amenorrhea N91.2; N97.0 History of DVT (deep vein thrombosis) Z86.718 Factor 5 Leiden mutation, heterozygous D68.51 Assessment and Plan Assessment and Plan (1) Submucous uterine fibroid: Status: Acute Comment: Recommend hysteroscopic myomectomy. Discussed risks of scar tissue, discussed risk of clotting with oral estrogen postop so will not prescribe. Plan - Dr. Lisy Tamez MD: After discussing the patient's diagnosis and treatment plan options, patient wishes to proceed with surgical management. I have discussed with the patient the risks, benefits, and alternatives of the procedure which include but are not limited to risks of anesthesia, bleeding, infection, possible damage to bowel, bladder, or surrounding vasculature which could lead to additional surgery to evaluate any complications. Patient agrees to procedure and wishes to proceed. ACOG/uptodate references given for additional information regarding procedure. (2) Oligo-ovulation with amenorrhea: Status: Acute Comment: Labs within normal limit. Plan Femara for fertility after postoperative. (3) History of DVT (deep vein thrombosis): Status: Acute (4) Factor 5 Leiden mutation, heterozygous: Status: Acute Comment: SCDs preop. UPDATE- I have seen the patient and performed any clinically relevant updates to the history and physical exam. Lisy Tamez MD
[2021-04-15] VITALS (8 sets, daily range): BP systolic 98–121; BP diastolic 62–78; PULSE 69–88; RESP 16; TEMP 36.1–36.9; O2SAT 93–98; BMI 35.3
[2021-04-15 09:56] LABS: Internal QC Validated? YES +Cl - CLEAR BKGD; Pregnancy, Urine Negative Negative
[2021-04-15] MEDS: Lactated Ringers 1,000 ML 100 ML IV (10:12)
--- NOTE | 2021-04-15 11:20 | EMB_PTH ---
PATIENT: JULIA RBOWN LOC: [facility] U#:[id number] AGE/SX: 30/F ROOM: RE04/15/[address]: Dr. Lisy Tamez MD : 1990 BED: DIS: 04/15/2021 SPEC #: [id number] RECD: 04/15/21 13:29 STATUS: DILCIA BANKS #: [id number] JUAN ANTONIO: 04/15/21 11:[address]: Lisy Tamez DEPT: SURGICAL PATHOLOGY RECD BY: Nasima Del Rosario ENTERED: 04/15/21 13:42 SP TYPE: ENDOM BX/C SLICK DR: Dr. Zen Bucio MD Tissues: Endometrium, NOS Procedures: Surgery Specimen Level IV HEADER OPERATION: Hysteroscopic myomectomy PRE-OP DIAGNOSIS: Submucous uterine fibroid, oligo-ovulation with amenorrhea TISSUE SUBMITTED: Polyp, fibroid, endometrial curettings MICROSCOPIC DIAGNOSIS Endometrial curettings and polyp: Proliferative endometrium with minimal disorder. Fragments of benign myometrial tissue. AM:adrianna 04/16/2021 MICROSCOPIC DESCRIPTION Slides are reviewed. GROSS DESCRIPTION Received in fixative is one container labeled with the patient's name and designated polyp, fibroid, endometrium. The specimen consists of multiple irregular fragments of pink-bee soft tissue that in aggregate measure 5 x 3 x 0.2 cm. The specimen is totally submitted in two cassettes. / AM:adrianna 04/15/21 TC:5 CPT: 11859
--- NOTE | 2021-04-15 13:12 | OP.PCM_ITS ---
Problems Associated Problem List Diagnoses (1) Factor 5 Leiden mutation, heterozygous: (2) Submucous uterine fibroid: (3) Oligo-ovulation with amenorrhea: (4) History of DVT (deep vein thrombosis): Report of Operation Date of Procedure: 04/15/21 Pre-Operative Diagnosis: see problem list Post-Operative Diagnosis: same Surgery/Procedure Performed:: D&C hysteroscopy myomectomy using symphion Description of Surgical Findings:: Posterior submucosal fibroid human resources analyst: None Type of Anesthesia: Local MAC Special Medications: none Specimen's removed: EMC, fibroid Drains: none Estimated Blood Loss (mL): 50 Fluids Replaced: crystalloid Description of Procedure: Patient was prepped and draped in a normal sterile fashion under MAC anesthesia. A weighted speculum was placed in the vagina and the anterior lip of the cervix was grasped with a single-tooth tenaculum. A paracervical block was placed with 1% lidocaine. Cervix was progressively dilated to allow passage of a 5 mm hysteroscope. The lining was fully visualized and noted to have a submucosal posterior fibroid. Uterine sounded to 8 cm. Using the symphion device, the fibroid was progressively removed without complications. Direct visual curettage was performed using the device , and all specimens were sent to pathology. All instruments were removed from the vagina and excellent hemostasis was noted. Patient was awoken and taken to recovery in stable condition. Grafts/Implants Used: none Complications none Admit VTE Documentation VTE Present on Admission: No VTE Mechan Device Prophylaxis: SCD's Multi Select Codes Urinary/Genital Urinary/Genital CPT Codes: 68719 Hysteroscopic myomectomy
--- NOTE | 2021-04-15 13:12 | EX.PCM.DISCH ---
Discharge Instructions Procedure D&C Diet Discharge Diet: No restrictions Activity Discharge Activity: Return to Normal Activity, May Shower and May Take a Tub Bath (after 1 week) May resume sexual activity in: 1-2 weeks Weight Bearing Status: Weight bearing as tolerated Lifting Restrictions: none Dressing / Incision Call your doctor if you observe: Fever of 101 or Higher, Using more than 1 pad per hour, Shortness of breath and Uncontrolled pain Follow Up Care Please Follow Up With: Lisy Tamez MD When: Call [phone] to schedule appointment. Test Results: Test results from this visit will be discussed in further detail at your follow-up appointment, if applicable. Discharge Plan Admission Primary Reason for Your Visit: hysteroscopic resection fibroid Attending Provider: Lisy Tamez Primary Care Provider: Zen Bucio Discharge Orders/Prescriptions Prescriptions: New naproxen 250 MG tablet 250 - 500 mg PO Q8H PRN PRN (Reason: MILD PAIN) Qty: 30 RF: 1 Continued vboxbebe-cgc-xxtwa acid-biotin 1 EACH tablet 1 ea PO DAILY RF: 0 Referrals / Follow Up: Zen Bucio MD [Primary Care Provider] - Disposition Disposition (needs filled in before D/C Order can be placed): Home, Self Care
[2021-04-15] MEDS: HYDROcodone Bitartrate/Apap 5/325 Tablet PO (14:13)
== END 2021-04-15 15:07 | disposition home or self-care (01) ==
LOC: SDC 09:34 → AC 09:35
PROVIDERS: Anesthesiology; Referring Provider Obstetrics & Gynecology; Visit Provider Obstetrics & Gynecology
PROC: 0UB98ZZ Excision of Uterus, Via Natural or Artificial Opening Endoscopic (ICD-10-PCS; CPT 58558; principal; 2021-04-15 11:05)
DX: D25.0 Submucous leiomyoma of uterus (principal); Z20.822 Contact with and (suspected) exposure to COVID-19; N97.0 Female infertility associated with anovulation; N91.5 Oligomenorrhea, unspecified; N91.2 Amenorrhea, unspecified; E72.12 Methylenetetrahydrofolate reductase deficiency; D68.51 Activated protein C resistance; J45.909 Unspecified asthma, uncomplicated; Z79.3 Long term (current) use of hormonal contraceptives; Z86.718 Personal history of other venous thrombosis and embolism
CPT/HCPCS: 58561; 36415; 81025; 84703; 85025; 86850; 86900; 86901; 87426; 88305; C9803; J7120; J2405

== ENCOUNTER → 2021-08-04 07:58 | Outpatient (CLI) | payer OTHER, SELFPAY ==
[2021-08-04 10:01] LABS: Progesterone Level 0.63 ng/mL (See Comment)
== END ==
PROVIDERS: Referring Provider Obstetrics & Gynecology; Visit Provider Obstetrics & Gynecology
DX: N91.2 Amenorrhea, unspecified (principal); N97.0 Female infertility associated with anovulation
CPT/HCPCS: 36415; 84144

== ENCOUNTER → 2021-09-12 13:28 | Outpatient (CLI) | payer OTHER, SELFPAY ==
[2021-09-12 14:34] LABS: Progesterone Level 13.77 ng/mL (See Comment)
== END ==
PROVIDERS: Visit Provider Obstetrics & Gynecology
DX: N92.1 Excessive and frequent menstruation with irregular cycle (principal); N91.2 Amenorrhea, unspecified; N97.0 Female infertility associated with anovulation
CPT/HCPCS: 36415; 84144

== ENCOUNTER → 2022-05-06 | Outpatient (CLI) | payer OTHER, SELFPAY ==
--- NOTE | 2022-05-06 14:54 | US_ITS ---
STUDY: ULTRASOUND OF THE FEMALE PELVIS - COMPLETE REASON FOR EXAM: Female, 31 years old. AUB LMP: TECHNIQUE: Transabdominal and transvaginal TECHNICAL QUALITY: Adequate. COMPARISON: 03/12/2021 FINDINGS: The uterus is anteverted and is in a midline position. The uterus measures 10.4 x 6.6 x 4.2 cm. Normal uterine cervix. The endometrium measures 3.2 mm in thickness, and is heterogeneous. There is no demonstrated endometrial mass. There is a small fibroid measuring approximately 1 x 1 x 0.8 cm. I.U.D. - The patient does not have an I.U.D. tiny nabothian cyst noted within the lower uterine segment The right ovary is visualized. The right ovary measures 2.7 x 2.6 x 1.9 cm. There is no right ovarian cyst or ovarian mass. There is no visualized right adnexal mass or complex lesion. There is normal arterial and normal venous vascularity. The left ovary is visualized. The left ovary measures 3.5 x 2.4 x 1.7 cm. There is no left ovarian cyst or ovarian mass. There is no visualized left adnexal mass or complex lesion. There is normal arterial and normal venous vascularity. There is no fluid in the cul-de-sac. The pre void volume of the bladder was 288.68 ml. US/Transvaginal Non- IMPRESSION: Small intrauterine fibroid measuring 1 x 1 x 0.8 cm. No other significant abnormality Electronically Signed: Gary Mixon MD at 16:29 EDT ,
--- NOTE | 2022-05-06 14:54 | US_ITS ---
STUDY: ULTRASOUND OF THE FEMALE PELVIS - COMPLETE REASON FOR EXAM: Female, 31 years old. AUB LMP: TECHNIQUE: Transabdominal and transvaginal TECHNICAL QUALITY: Adequate. COMPARISON: 03/12/2021 FINDINGS: The uterus is anteverted and is in a midline position. The uterus measures 10.4 x 6.6 x 4.2 cm. Normal uterine cervix. The endometrium measures 3.2 mm in thickness, and is heterogeneous. There is no demonstrated endometrial mass. There is a small fibroid measuring approximately 1 x 1 x 0.8 cm. I.U.D. - The patient does not have an I.U.D. tiny nabothian cyst noted within the lower uterine segment The right ovary is visualized. The right ovary measures 2.7 x 2.6 x 1.9 cm. There is no right ovarian cyst or ovarian mass. There is no visualized right adnexal mass or complex lesion. There is normal arterial and normal venous vascularity. The left ovary is visualized. The left ovary measures 3.5 x 2.4 x 1.7 cm. There is no left ovarian cyst or ovarian mass. There is no visualized left adnexal mass or complex lesion. There is normal arterial and normal venous vascularity. There is no fluid in the cul-de-sac. The pre void volume of the bladder was 288.68 ml. US/Pelvic (Non ) IMPRESSION: Small intrauterine fibroid measuring 1 x 1 x 0.8 cm. No other significant abnormality Electronically Signed: Gary Mixon MD at 16:29 EDT ,
== END | disposition home or self-care (01) ==
PROVIDERS: Referring Provider Nurse Practitioner Women's Health; Visit Provider Nurse Practitioner Women's Health
DX: N93.9 Abnormal uterine and vaginal bleeding, unspecified (principal)
CPT/HCPCS: 76830; 76856

== ENCOUNTER 2023-04-24 13:34 | Emergency (ER) | payer OTHER, SELFPAY ==
[2023-04-24 13:36] VITALS: BP 213/199; PULSE 114; RESP 18; TEMP 36.6; O2SAT 98
[2023-04-24 13:46] VITALS: BMI 30.7
--- NOTE | 2023-04-24 14:02 | EDS_ITS ---
HPI History of Present Illness Chief Complaint: Upper Extremity Injury Informant: patient Narrative Narrative: 3-4 days of gradual onset pain in the left shoulder that is now severe. Hurts to lay on either side especially the ipsilateral. Pain feels like it is inside, in the joint. Feels like it is both lateral and anterior. Every movement hurts. Occasional tingling in her fingers but nothing prolonged. Denies any fevers or chills or other systemic symptoms. 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 She has had follow-up with [facility] and seen physical therapy and did have improvement, but she has had episodes similar to this, some of which have been random like this 1, some of which have been triggered by overworking or certain movements, but this is by far the worst severity, but similar type and location of discomfort. She has never seen orthopedics for this. She states she did have an MRI, but was basically told it was unremarkable. Has a history of factor V Leiden but she is not anticoagulated. [facility] Medical History Alcohol use Asthma Factor 5 Leiden mutation, heterozygous Heartburn History of DVT (deep vein thrombosis) MTHFR gene mutation Non-smoker Wears glasses Home Medications multivitamin with minerals-folic acid 66.7 mcg-biotin 1,000 mcg tablet 1 ea PO DAILY 01/15/20 [History Last Taken Unknown] naproxen 250 mg tablet 250 - 500 mg (1 - 2 x 250 mg) PO Q8H PRN PRN MILD PAIN #30 tabs 04/15/21 [Rx Last Taken Unknown] naproxen 500 mg tablet 500 mg PO BID #20 tabs 04/24/23 [Rx Last Taken Unknown] oxycodone-acetaminophen 5 mg-325 mg tablet 1 tab PO Q6H PRN PRN Pain 3 days #10 TABLETS 04/24/23 [Rx Last Taken Unknown] Allergy/AdvReac Type Severity Reaction Status Date / Time hydromorphone [From Dilaudid] Allergy Mild Hives Verified 04/24/23 13:39 morphine Allergy Mild Hives Verified 04/24/23 13:39 tramadol Allergy Hives Verified 04/24/23 13:39 codeine AdvReac Mild Nausea Verified 04/24/23 13:39 Family History Unknown Breast cancer Surgical History H/O knee surgery H/O myomectomy History of placement of chest tube History of wisdom tooth extraction, class II edentulism Status post hysteroscopy (~01/16/20) Social History Smoking Status: Never smoker alcohol intake: never substance use type: does not use caffeine: Yes what type of physical activity do you participate in: walking seatbelt use: always do you feel safe at home: Yes additional social history: Works at [employer] ROS ROS ED Constitutional Constitutional ED: Denies chills or fever(s) Musculoskeletal Musculoskeletal: Reports extremity pain; Denies neck pain Integumentary Denies Abrasions, rash or wounds Neurologic Neurologic: Denies paresthesias or weakness EXAM Physical Exam Const Vital Signs: 04/24/23 13:36 Temperature 98 F Temperature Source Temporal Pulse Rate 114 H Respiratory Rate 18 Blood Pressure 213/199 H Blood Pressure Mean 203 Pulse Ox 98 Oxygen Delivery Method Room Air Positive well nourished and well developed General Appearance ED: well developed and NAD Neck full ROM and supple Back/Spine normal ROM and normal to inspection Extremity normal to inspection Extremity Narrative: Patient able to perform short arc range of motion in all directions with her left shoulder, but it ranges extremely limited in all directions due to pain. She is neurovascular intact distally throughout the left upper extremity including axillary nerve distribution and there is no deformity. The area of most significant tenderness is at the coracoid process, not the biceps tendon and her Yergason sign is negative. She can perform internal and external rotation but in a limited fashion, she is able to put her hand against her stomach but not able to get it behind the small of her back. She can abduct to about 15 degrees where she stops, she can forward flex a little easier but stops due to pain at around 30 or 45 degrees. Neuro oriented x3, no focal motor deficits and no sensory deficits noted Sensorium / Orientation: alert Psych mental status grossly normal and thought process normal Skin no wounds Rashes: no rashes MDM MDM MDM Narrative Medical decision making narrative: Under most circumstances such as these, x-rays would not be indicated but since the patient is having significant pain with movement in every direction, this is more suspicious for joint effusion, more likely than hemarthrosis, and/or calcific tendinitis, less likely septic arthritis given my personal exam on her today. Therefore x-rays were obtained, 4 views left shoulder on my interpretation shows calcific tendinitis. Patient was treated with an oral anti-inflammatory and oxycodone and placed in a sling for comfort and referred to orthopedics. History & Record Review Additional record(s) reviewed:: Prior outpatient record (Reviewed MRI left shoulder 10/2019, negative) Discharge Plan Triage Chief Complaint: Upper Extremity Injury ED Provider: Romulo Lozano Dx/Rx/DC Orders Clinical Impression: Calcific tendinitis of left shoulder Instructions: The Shoulder Joint, ED Tendonitis Prescriptions: New oxycodone-acetaminophen [oxycodone-acetaminophen] 5-325 mg tablet 1 tab PO Q6H PRN PRN (Reason: Pain) 3 Days Qty: 10 0RF naproxen 500 mg tablet 500 mg PO BID Qty: 20 0RF No Action [id number]-bfl-gfmrt acid-biotin 1 EACH tablet 1 ea PO DAILY naproxen 250 MG tablet 250 - 500 mg PO Q8H PRN PRN (Reason: MILD PAIN) Qty: 30 1RF Primary Care Provider: Care Physician,No Primary Referrals: [facility] [Other] Arturo Rosenthal DO [Med Staff - Active Staff] - As soon as possible Disposition Disposition: Home, Self Care
[2023-04-24] MEDS: Naproxen 250 MG Tablet 500 MG PO (14:11)
[2023-04-24] MEDS: oxyCODONE 5 MG Tablet PO (14:12)
--- NOTE | 2023-04-24 14:15 | RAD_ITS ---
INDICATION: Shoulder pain, no history recent injury. EXAMINATION/TECHNIQUE: X-RAY - LEFT XR Shoulder Min 2 Views 4 VIEWS COMPARISON: No prior examinations are available for comparison. FINDINGS: SOFT TISSUES: Soft tissue calcifications lateral and superior to the humeral head consistent with calcific tendinitis. No radiopaque foreign body. BONES/JOINTS: No acute fracture or subluxation.. Normal alignment. Preservation of the joint space.. No sclerotic or destructive changes observed. RAD/Shoulder min 2 Views IMPRESSION: Calcific tendinitis of the left shoulder. Electronically Signed: Junior Osei MD at 14:56 EDT ,
== END 2023-04-24 14:45 | disposition home or self-care (01) ==
PROVIDERS: Emergency Provider Emergency Medicine; Visit Provider Emergency Medicine
DX: M77.9 Enthesopathy, unspecified (principal); Z86.718 Personal history of other venous thrombosis and embolism
CPT/HCPCS: 73030; 99284